=== PATIENT | male | born 1990 | race Caucasian/White ===

== ENCOUNTER 2020-03-13 13:52 | Emergency (ER) | payer OTHER ==
[2020-03-13 13:58] VITALS: BP 154/105
[2020-03-13] MEDS ORDERED: FLUCONAZOLE 100 MG TABLET PO STA (14:03)
--- NOTE | 2020-03-13 14:06 | ED Physician Documentation ---
History of Present Illness - Stated complaint Stated Complaint: MALE - Chief complaint Chief Complaint: General - History obtained from History obtained from: Patient (2 weeks of increasing burning itchy rash to both sides of the groin. Similar to when he had tinea cruris in 2016.) Review of Systems Constitutional: reports: Reviewed and negative Eyes: reports: Reviewed and negative Cardiac: reports: Reviewed and negative PD PAST MEDICAL HISTORY - Past Surgical History Past Surgical History: No - Present Medications Home Medications: Ambulatory Orders Medication Instructions Recorded Confirmed Ketoconazole 1 applic TP DAILY #60 g 04/29/16 hydrOXYzine PAMOATE [Vistaril] 25 mg PO Q6H PRN #12 capsule 04/29/16 Ketoconazole 1 gm TP TID #1 cream..g. 03/13/20 - Allergies Allergies/Adverse Reactions: Allergies Allergy/AdvReac Type Severity Reaction Status Date / Time No Known Drug Allergies Allergy Verified 03/13/20 13:58 - Social History Does the pt smoke?: Yes Smoking Status: Current every day smoker Does the pt drink ETOH?: No Does the pt have substance abuse?: No - Immunizations Immunizations are current?: Yes PD ED PE NORMAL - Vitals Vital signs reviewed: Yes - General General: Alert and oriented X 3, No acute distress - Male Male : Other (Tinea cruris in the intertriginous areas of both sides of the groin) - Neuro Neuro: Alert and oriented X 3, Normal speech Results - Vitals Vitals: Vital Signs - 24 hr 03/13/20 13:54 Temperature 36.7 C Heart Rate 105 H Respiratory 20 Rate Blood Pressure 154/105 H O2 Saturation 98 Oxygen O2 Source Room air Departure - Departure Disposition: 01 Home, Self Care Clinical Impression: Tinea cruris Condition: Good Record reviewed to determine appropriate education?: Yes Instructions: ED Tinea Cruris General Prescriptions: Ketoconazole 1 gm TP TID #1 cream..g. Comments: Call your doctor to arrange a follow-up appointment, make the next available appointment. In the interim, return anytime if worse or if new symptoms develop.
== END 2020-03-13 14:20 | disposition home or self-care (01) ==
LOC: ED 13:52
DX: B35.6 Tinea cruris (principal); F17.200 Nicotine dependence, unspecified, uncomplicated
CPT/HCPCS: 99282; 99283; A9270

== ENCOUNTER 2024-02-01 10:04 | Outpatient (CLI) | payer OTHER ==
--- NOTE | 2024-02-02 02:00 | XRAY Report ---
PROCEDURE: Knee 4+V LT INDICATIONS: LT KNEE PAIN TECHNIQUE: 3 views of the knee was obtained. COMPARISON: None FINDINGS: Bones: No fractures or dislocations. No suspicious bony lesions. Soft tissues: No knee joint effusion. No suspicious soft tissue calcifications or masses. IMPRESSION: Unremarkable knee radiographs Reviewed by: Jan Street MD on 02/02/2024 12:59 AM [email or web address] Approved by: Jan Street MD on 02/02/2024 12:59 AM AKDT Station ID: [id number]
== END 2024-02-01 10:05 | disposition home or self-care (01) ==
LOC: DI.N 10:04
PROVIDERS: ATTEND Physician Assistant Surgical
DX: M25.562 Pain in left knee (principal)

== ENCOUNTER 2024-02-23 07:18 | Outpatient (CLI) | payer OTHER ==
--- NOTE | 2024-02-23 12:08 | MRI Report ---
PROCEDURE: Knee LT WO INDICATIONS: L KNEE MENISCUS DERANGEMENT TECHNIQUE: Noncontrast sagittal PD fast spin echo and T2 fast spin echo with fat saturation, sagittal 3-D gradie nt sequence with fat saturation; coronal T1 spin echo and PD fast spin echo with fat saturation, and axial PD fast spin echo with fat saturation through the knee. COMPARISON: Left knee radiograph dated 02/01/2024. FINDINGS: Image quality: Excellent. Menisci: Horizontal oblique tear involving posterior horn of medial meniscus is seen extending to inf erior articulating surface. There is also vertical tear involving body of medial meniscus extending t o both superior and inferior articulating surfaces. The lateral meniscus is intact. The meniscal root ligaments appear intact. Cruciate ligaments: The anterior and posterior cruciate ligaments appear intact. Medial structures: The medial collateral ligament appears thickened with adjacent edema. Visualized portions of the pes anserinus tendons appear normal. No abnormal bursal fluid. Lateral structures: The lateral collateral ligament, long and short heads of the biceps femoris tend on appear intact. The popliteus tendon appears normal. Iliotibial band appears normal. Anterior structures: The quadriceps and patellar tendons appear intact. Patellar alignment is mary l. No femoral trochlear dysplasia or ventral trochlear prominence. No edema in the infrapatellar fa t pad. Bones and cartilage: Marrow edema is seen involving anterior medial periphery of medial femoral condy le and medial aspect of proximal tibia extending to medial tibial plateau without definite fracture l ine. 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 The cartilage in lat eral femoral tibial compartment and patellofemoral compartment is intact. Joint space: There is small knee joint fluid. There is a lobulated Rodriguez's cyst measures 1.8 x 2.2 x 4.5 cm in size Normal appearing synovial plicae are incidentally noted. IMPRESSION: 1. Horizontal oblique tear involving posterior horn of medial meniscus extending to inferior articula ting surface. Vertical tear involving body of medial meniscus extending to both superior and inferior articulating surface. The lateral meniscus is intact. 2. Cruciate ligaments are intact. 3. Low-grade MCL sprain/partial thickness tear near its femoral insertion. 4. Contusion involving medial periphery of medial femoral condyle and adjacent proximal tibia. No fra cture or dislocation. Low-grade chondromalacia in medial femoral tibial compartment. 5. Small joint effusion and a lobulated Rodriguez's cyst as above. No loose bodies. Reviewed by: Blas Millan MD on 02/23/2024 12:07 PM PDT Approved by: Blas Millan MD on 02/23/2024 12:07 PM PDT Station ID: [id number]
== END 2024-02-23 07:19 | disposition home or self-care (01) ==
LOC: DI 07:18
PROVIDERS: ATTEND Physician Assistant Surgical
DX: S83.242A Other tear of medial meniscus, current injury, left knee, initial encounter (principal); S83.412A Sprain of medial collateral ligament of left knee, initial encounter; M94.262 Chondromalacia, left knee; S70.12XA Contusion of left thigh, initial encounter; M25.462 Effusion, left knee; M71.22 Synovial cyst of popliteal space [Baker], left knee